=== PATIENT | female | born 1975 | race Caucasian/White ===

== ENCOUNTER 2025-03-19 09:49 | Emergency (ER) | payer BC, SELFPAY ==
[2025-03-19] VITALS (10 sets, daily range): BP systolic 105–119; BP diastolic 67–87; PULSE 74–97; RESP 14–29; TEMP 36.8–36.9; O2SAT 99–100
--- NOTE | 2025-03-19 09:45 | RT.EKG_ITS ---
APPROVED REPORT Exam: Resting ECG Reason for Exam: vomiting Patient Location: E HR:74 bpm ECG Measurements Heart Rate 74 AXIS AL 184 P 40 QRSd 81 QRS 29 QT 386 T 49 QTc 428 Conclusion Sinus rhythm...normal P axis, V-rate 60- 99 Low voltage, precordial leads...precordial leads <1.0mV --------- No STEMI
--- NOTE | 2025-03-19 10:16 | W.ED.GENAD ---
Discharge Plan Disposition Patient Disposition: Home Condition: Good Discharge Details Clinical Impression: Nausea vomiting and diarrhea, Hypokalemia Primary Care Provider: Renetta,Local ED Provider: Abdoulaye Waldron Home Meds and New Rx's Prescriptions: New ondansetron 4 mg tablet,disintegrating 4 mg PO Q6H PRNQty: 20 0RF Continued Zepbound 15 mg/0.5 mL pen injector 15 mg subcut QWEEK cetirizine [24Hour Allergy] 10 mg tablet 10 mg PO DAILY PRN omeprazole 40 mg capsule,delayed release(DR/EC) 40 mg PO DAILY sertraline 200 mg capsule 200 mg PO DAILY levothyroxine 75 mcg capsule 75 mcg PO DAILY mirtazapine 15 mg tablet 15 mg PO DAILY cyclobenzaprine 10 mg tablet 10 mg PO TID PRN dextroamphetamine-amphetamine [Adderall] 30 mg tablet 30 mg PO DAILY Discharge Instructions Instructions: Hypokalemia, Nausea and vomiting in adults Additional Instructions: Please follow-up with your primary care provider regarding your visit to the emergency department today. Be sure to discuss results of all test performed here today to include radiology, and laboratory testing as well as results for any pending cultures. Should your symptoms worsen, or if you develop new concerning symptoms, please return immediately emergency department for further evaluation. HPI General Date/Time Provider Initiated Documentation: 03/19/25 09:51. HPI Narrative: The patient is a 50-year-old female with a known diagnosis of hypermobile Refugio-Danlos syndrome, presenting with 12 hours of emesis and nonbloody diarrhea. The onset of symptoms was preceded by diarrhea, eructation attributed to tirzepatide use, and nausea. The patient reports consumption of a lemon donut and potentially undercooked hamburger prior to symptom onset. She has experienced pyrexia with a recorded temperature of 99?F, accompanied by chills and shivering overnight. The patient denies abdominal pain, cough, pharyngitis, rhinorrhea, urinary symptoms, or hematochezia. She has previously utilized ondansetron and promethazine for symptom management but has not used droperidol. Related Data Home Medications ?Medication ?Instructions ?Recorded ?Confirmed cetirizine 10 mg tablet (24Hour 10 mg PO DAILY PRN 03/19/25 03/19/25 Allergy) cyclobenzaprine 10 mg tablet 10 mg PO TID PRN 03/19/25 03/19/25 dextroamphetamine-amphetamine 30 30 mg PO DAILY 03/19/25 03/19/25 mg tablet (Adderall) levothyroxine 75 mcg capsule 75 mcg PO DAILY 03/19/25 03/19/25 mirtazapine 15 mg tablet 15 mg PO DAILY 03/19/25 03/19/25 omeprazole 40 mg capsule,delayed 40 mg PO DAILY 03/19/25 03/19/25 release ondansetron 4 mg disintegrating 4 mg PO Q6H PRN #20 tabs 03/19/25 tablet sertraline 200 mg capsule 200 mg PO DAILY 03/19/25 03/19/25 tirzepatide (weight loss) 15 15 mg subcut QWEEK 03/19/25 03/19/25 mg/0.5 mL subcutaneous pen injector (Zepbound) Previous Rx's ?Medication ?Instructions ?Recorded ondansetron 4 mg disintegrating 4 mg PO Q6H PRN #20 tabs 03/19/25 tablet Allergies Allergy/AdvReac Type Severity Reaction Status Date / Time sulfamethoxazole (From Allergy Severe Anaphylaxis Verified 03/19/25 10:02 Bactrim) trimethoprim (From Bactrim) Allergy Severe Anaphylaxis Verified 03/19/25 10:02 doxycycline Allergy Intermediate Unknown Verified 03/19/25 10:02 General Stated Complaint: Nausea/Vomit/Diar MELANIE: 3 Review of Systems All systems reviewed & are unremarkable except as noted in HPI and below Exam Narrative Exam Narrative: Vital signs: Reviewed. General Appearance: Alert and oriented. No acute distress. HEENT: NCAT, EOMI, not icteric. External ears normal. No rhinorrhea. Moist mucous membranes. Neck: Supple, full range of motion, no observable masses, No meningeal sign. Respiratory: No Respiratory distress. No tachypnea. Cardiovascular: RRR, no edema. Gastrointestinal: Abdomen soft, non-tender, no guarding or rebound tenderness. No signs of abdominal distension. Back: No midline tenderness to palpation or palpable step-offs of the C/T/L spine. No CVA tenderness bilaterally Skin: Warm and dry, no rash. Neurological: Normal Gait, Grossly intact. Psychiatric: Appropriate for situation. Course Reevaluation(s) Reevaluation: On reassessment, patient sleeping and resting comfortably. She was updated with her results showing mild hypokalemia which we will provide oral repletion. Suspect this is secondary to reported vomiting as patient has no other obvious causes for hypokalemia. Remainder of workup is unremarkable. Patient will be discharged with prescriptions for Zofran, and return to the emergency department should he develop any new or concerning symptoms such as bloody stools, fever, persistent vomiting or abdominal pain. Vital Signs Vital signs: Vital Signs Temperature 36.8 C 03/19/25 09:59 Pulse 97 H 03/19/25 09:59 Respiratory Rate 14 03/19/25 09:59 Blood Pressure 119/87 03/19/25 09:59 Pulse Oximetry 100 03/19/25 09:59 Temperature 36.8 C 03/19/25 09:59 Temperature Source Oral 03/19/25 09:59 Pulse 97 H 03/19/25 09:59 Respiratory Rate 14 03/19/25 09:59 Blood Pressure 119/87 03/19/25 09:59 Blood Pressure Position Sitting 03/19/25 09:59 Pulse Oximetry 100 03/19/25 09:59 Oxygen Delivery Method Room Air 03/19/25 09:59 Oxygen Flow Rate 0 03/19/25 09:59 Lab/Test Results Lab/Test Results: Laboratory Tests Range/Units 03/19/25 03/19/25 10:20 10:28 WBC (4.4-10.8) 10^3/uL 10.21 RBC (3.93-5.22) 10^6/uL 5.06 Hgb (11.2-15.7) g/dL 15.1 Hct (36.0-46.0) % 45.1 MCV (80-95) fL 89 MCH (27.0-33.0) pg 29.8 MCHC (32.0-36.0) % 33.5 RDW (11.7-14.6) % 12.6 Plt Count (130-400) 10^3/uL 271 MPV (8.0-11.0) fL 9.3 Immature Gran % % 0.3 Neutrophils % % 87.4 Lymphocytes % % 6.6 Monocytes % % 4.7 Eosinophils % % 0.6 Basophils % % 0.4 Nucleated RBC % (0.0-0.3) % 0.0 Absolute Neutrophils (1.2-6.7) 10^3/uL 8.93 H Absolute Lymphocytes (1.2-3.4) 10^3/uL 0.67 L Absolute Monocytes (0.1-0.8) 10^3/uL 0.48 Absolute Eosinophils (0.0-0.7) 10^3/uL 0.06 Absolute Basophils (0.0-0.2) 10^3/uL 0.04 Sodium (136-145) mmol/L 142 Potassium (3.5-5.1) mmol/L 3.4 L Chloride (98-107) mmol/L 102 Carbon Dioxide (21.0-32.0) mmol/L 27.2 Anion Gap (3-11) mmol/L 12.8 H BUN (7-18) mg/dL 17 Creatinine (0.55-1.02) mg/dL 0.9 Est GFR (CKD-EPI 2020) (mL/min/1.73m2) 77.88 Glucose (74-106) mg/dL 102 Calcium (8.5-10.1) mg/dL 9.9 Magnesium (1.8-2.4) mg/dL 2.4 Total Bilirubin (0.2-1.0) mg/dL 0.5 AST (15-37) U/L 19 ALT (14-59) U/L 27 Alkaline Phosphatase (46-116) U/L 45 L Troponin I (<or=51) ng/L < 4 Total Protein (6.4-8.2) g/dL 9.1 H Albumin (3.4-5.0) g/dL 5.3 H Urine Color (Yellow) Yellow Urine Clarity (Clear) Clear Urine pH (5-8) 5.5 Ur Specific [place] (1.005-1.025) 1.020 Urine Protein (Neg-Trace) mg/dL Trace Urine Ketones (Negative) mg/dL Trace H Urine Blood (Negative) Negative Urine Nitrite (Negative) Negative Urine Bilirubin (Negative) Negative Urine Urobilinogen (Up to 0.2) mg/dL 0.2 Ur Leukocyte Esterase (Negative) Negative Urine Glucose (Negative) mg/dL Negative Medical Decision Making Initial Assessment: 50-year-old female with 1200 hours of vomiting, belching, and diarrhea. Fever and chills present. Differential Diagnosis: - Food poisoning: Symptoms post burger and donut. Monitor symptoms. - Gastroenteritis: Fever, chills, vomiting, diarrhea. Consider viral/bacterial cause. Collect urine sample, monitor labs. - Medication side effects: Tirzepatide use. Monitor response to fluids and antiemetics. ED Course: - Ordered liter of fluid - Administered droperidol for nausea - Collected urine sample Final Assessment: Administered fluids and droperidol for nausea. Urine sample collected. Monitor lab results. Clinical Impression: - Vomiting - Fever and chills Disposition: Discharge: Home. Return if symptoms worsen or persist. This document was created with assistance from [employer]. The patient consented to its use. Imaging Data Radiologic Study: My impression: NAD Radiologist's impression: Exam(s) XR PORTABLE CHEST AP EXAM: XR PORTABLE CHEST AP CLINICAL HISTORY: Fever. TECHNIQUE: 2D digital imaging was performed. COMPARISON: No exams were available for comparison FINDINGS: Single AP portable view. Heart size is upper normal. The mediastinum is not widened. Lungs are clear. No infiltrates nor obvious pleural effusions. IMPRESSION: No acute pulmonary findings on this single AP portable view of the chest. ECG Data Interpretation: Rhythm: NSR Rate: 74 [place]: Normal axis Intervals: Normal intervals Other findings: No acute ST segment or T wave changes to suggest acute ischemia. PFSH All Active Problems (Updated 03/19/25 @ 11:34 by Abdoulaye Waldron MD) Hypokalemia (Acute) Nausea vomiting and diarrhea (Acute) Social History Smoking risk assessment performed?: No
[2025-03-19] MEDS: Normal Saline 1,000 ML 1000 ML IV (10:33)
[2025-03-19] MEDS: Droperidol 5 MG/2 ML VIAL 2.5 MG IVP (10:34)
[2025-03-19 10:41] LABS: Abs Immature Grans 0.03 10^3/uL (0.0-0.06); HCT 45.1 % (36.0-46.0); HGB 15.1 g/dL (11.2-15.7); Immature Grans % 0.3 %; MCH 29.8 pg (27.0-33.0); MCHC 33.5 % (32.0-36.0); MCV 89 fL (80-95); MPV 9.3 fL (8.0-11.0); Platelet Count 271 10^3/uL (130-400); RBC 5.06 10^6/uL (3.93-5.22); RDW 12.6 % (11.7-14.6); RDW-SD 40.9 fL; WBC 10.21 10^3/uL (4.4-10.8)
[2025-03-19 10:54] LABS: Glucose Negative (Negative)
[2025-03-19 11:01] LABS: ALT 27 U/L (14-59); AST 19 U/L (15-37); Albumin 5.3 g/dL (3.4-5.0); Alkaline Phosphatase 45 U/L (46-116); Anion Gap 12.8 mmol/L (3-11); BUN 17 mg/dL (7-18); Bilirubin, Total 0.5 mg/dL (0.2-1.0); CO2 27.2 mmol/L (21.0-32.0); Calcium 9.9 mg/dL (8.5-10.1); Chloride 102 mmol/L (98-107); Estimated GFR 77.88 (mL/min/1.73m2); Glucose 102 mg/dL (74-106); Magnesium 2.4 mg/dL (1.8-2.4); Potassium 3.4 mmol/L (3.5-5.1); Sodium 142 mmol/L (136-145); Total Protein 9.1 g/dL (6.4-8.2)
[2025-03-19 11:02] LABS: Troponin I < 4 ng/L (<or=51)
[2025-03-19] MEDS: Potassium Chloride 20 MEQ TABCR 40 MEQ PO (11:26)
== END 2025-03-19 11:53 | disposition home or self-care (01) ==
LOC: ER 11:42
PROVIDERS: Emergency Provider General Practice
DX: R11.2 Nausea with vomiting, unspecified (principal); R19.7 Diarrhea, unspecified; E87.6 Hypokalemia
CPT/HCPCS: 36415; 80053; 93005; 96361; 96374; 99284; 71045; 81003; 83735; 84484; 85025; 93010; J1790